=== PATIENT | male | born 1990 | race Hispanic/Latino ===

== ENCOUNTER 2020-02-23 10:10 | Emergency (ER) | payer SELFPAY ==
[2020-02-23] MEDS ORDERED: CYCLOBENZAPRINE 10 MG TAB ONE (11:53)
[2020-02-23] MEDS ORDERED: HYDROCODONE/APAP 7.5/325 MG TAB ONE (11:54)
--- NOTE | 2020-02-23 14:08 | ER ---
Nurse's Notes [facility] Name: Kyle Whatley Age: 29 yrs Sex: Male : 1990 Arrival Date: 02/23/2020 Time: 10:12 Bed 24 Private MD: Diagnosis: Pain in left leg Presentation: 02/22 10:40 Chief complaint: Patient states: started with low back pain X 3 weeks ago, now has pain iw moved into left leg down into his calf, also having numbness in the left leg. Coronavirus screen: At this time, the client does not indicate any symptoms associated with coronavirus-19. Ebola Screen: Patient negative for fever greater than or equal to 101.5 degrees Fahrenheit, and additional compatible Ebola Virus Disease symptoms Patient denies exposure to infectious person. Patient denies travel to an Ebola-affected area in the 21 days before illness onset. No symptoms or risks identified at this time. Initial Sepsis Screen: Does the patient meet any 2 criteria? No. Patient's initial sepsis screen is negative. Does the patient have a suspected source of infection? No. Patient's initial sepsis screen is negative. Risk Assessment: Do you want to hurt yourself or someone else? Patient reports no desire to harm self or others. Onset of symptoms was February 06, 2020. 10:40 Method Of Arrival: Ambulatory iw 10:40 Acuity: USHA 4 iw Historical: - Allergies: 10:42 No Known Allergies; iw - Home Meds: 10:42 None [Active]; iw - PMHx: 10:42 None; iw - PSHx: 10:42 None; iw - Immunization history:: Adult Immunizations not up to date. - Social history:: Smoking status: Patient denies any tobacco usage or history of. Screenin:26 Abuse screen: Denies threats or abuse. Denies injuries from another. Nutritional iw screening: No deficits noted. Tuberculosis screening: No symptoms or risk factors identified. Fall Risk None identified. Assessment: 11:26 General: Appears in no apparent distress. Behavior is calm, cooperative. Pain: iw Complains of pain in left leg. Neuro: Level of Consciousness is awake, alert, obeys commands, Oriented to person, place, time, situation, Moves all extremities. Cardiovascular: Patient's skin is warm and dry. Respiratory: Respiratory effort is even, unlabored, Respiratory pattern is regular. Derm: Skin is intact, is healthy with good turgor. Vital Signs: 10:42 BP 130 / 76; Pulse 81; Resp 16; Temp 97.3; Pulse Ox 98% on R/A; Weight 115.67 kg; iw Height 5 ft. 9 in. (175.26 cm); Pain 7/10; 10:42 Body Mass Index 37.66 (115.67 kg, 175.26 cm) iw ED Course: 10:12 Patient arrived in ED. as 10:30 Maribel Crook FNP-C is PHCP. kb 10:30 Ronnie Hudson MD is Attending Physician. kb 10:42 Triage completed. iw 11:24 Daisy Shipley, RN is Primary Nurse. iw 11:26 Patient has correct armband on for positive identification. iw 11:30 Arm band placed on. iw 12:08 Primary Nurse role handed off by Daisy Shipley, BRANDIE jd3 12:08 Shon Quintero, RN is Primary Nurse. jd3 12:31 US Extremity Venous Unilateral Ltd In Process Unspecified. EDMS 14:17 Primary Nurse role handed off by Shon Quintero RN iw 14:17 Daisy Shipley, RN is Primary Nurse. iw 14:38 No provider procedures requiring assistance completed. Patient did not have IV access iw during this emergency room visit. Administered Medications: 11:39 Drug: Flexeril 10 mg Route: PO; ca1 11:50 Follow up: Response: No adverse reaction iw 11:42 Drug: Pollock (7.5 mg-325 mg) 1 tabs {Note: rass 0.} Route: PO; ca1 11:50 Follow up: Response: No adverse reaction iw 14:30 Drug: TORadol 30 mg Route: IM; Site: right deltoid; iw 14:40 Follow up: Response: No adverse reaction iw Outcome: 14:07 Discharge ordered by . kb 14:38 Discharged to home ambulatory, with family. iw 14:38 Condition: good 14:38 Discharge instructions given to patient, family, Instructed on discharge instructions, follow up and referral plans. medication usage, Demonstrated understanding of instructions, follow-up care, medications, Prescriptions given X 2. 14:39 Patient left the ED. iw Signatures: Dispatcher [employer] EDMS Maribel Crook FNP-C FNP-Ckb Jayshree Lira, RN RN aj1 Tasha Gardner Irene, BRANDIE RN iw Shon Quintero RN RN jd3 Brittni Medina RN RN ca1 Corrections: (The following items were deleted from the chart) 11:42 10:42 BP 130 / 76; Pulse 81bpm; Resp 16bpm; Temp 97.3F; 115.67 kg; Height 5 ft. 9 in.; iw BMI: 37.6; Pain 7/10; iw 14:30 14:28 TORadol 30 mg IM in right deltoid aj1 iw
--- NOTE | 2020-02-23 14:08 | EDPHYS ---
Physician Documentation [facility] Name: Kyle Whatley Age: 29 yrs Sex: Male : 1990 Arrival Date: 02/23/2020 Time: 10:12 Bed 24 Private MD: ED Physician Ronnie Hudson HPI: 02/22 11:41 This 29 yrs old Male presents to ER via Ambulatory with complaints of Low Back kb Pain, Leg Pain. 11:41 The patient presents with pain, that is acute, tenderness. The complaints affect the kb left leg. Context: The problem was sustained at home, resulted from an unknown cause, the patient can fully bear weight, the patient is able to ambulate, Problem is a result from a previous injury: No. The patient has not experienced similar symptoms in the past. 11:42 Onset: The symptoms/episode began/occurred 3 week(s) ago. Modifying factors: The kb symptoms are alleviated by nothing. the symptoms are aggravated by weight bearing, straightening leg. Associated signs and symptoms: Pertinent positives: calf tenderness, Pertinent negatives fever, nausea, numbness, rash, swelling, tingling, vomiting, warmth, weakness. Treatment prior to arrival includes: no previous treatment. Severity of symptoms: At their worst the symptoms were moderate, in the emergency department the symptoms are unchanged. The patient has not recently seen a physician. Pt reports left leg pain that has been going on for 3 weeks. States the pain started in low back, but that has resolved. Now pain is from thigh to foot. Reports paresthesias at times. Historical: - Allergies: 10:42 No Known Allergies; iw - Home Meds: 10:42 None [Active]; iw - PMHx: 10:42 None; iw - PSHx: 10:42 None; iw - Immunization history:: Adult Immunizations not up to date. - Social history:: Smoking status: Patient denies any tobacco usage or history of. ROS: 11:40 Constitutional: Negative for fever, chills, and weight loss, Cardiovascular: Negative kb for chest pain, palpitations, and edema, Respiratory: Negative for shortness of breath, cough, wheezing, and pleuritic chest pain, Abdomen/GI: Negative for abdominal pain, nausea, vomiting, diarrhea, and constipation, Skin: Negative for injury, rash, and discoloration, Neuro: Negative for headache, weakness, numbness, tingling, and seizure. 11:40 MS/extremity: Positive for pain, tenderness, of the left leg. Exam: 11:40 Constitutional: This is a well developed, well nourished patient who is awake, alert, kb and in no acute distress. Head/Face: Normocephalic, atraumatic. Chest/axilla: Normal chest wall appearance and motion. Nontender with no deformity. No lesions are appreciated. Cardiovascular: Regular rate and rhythm with a normal S1 and S2. No gallops, murmurs, or rubs. Normal PMI, no JVD. No pulse deficits. Respiratory: Lungs have equal breath sounds bilaterally, clear to auscultation and percussion. No rales, rhonchi or wheezes noted. No increased work of breathing, no retractions or nasal flaring. Abdomen/GI: Soft, non-tender, with normal bowel sounds. No distension or tympany. No guarding or rebound. No evidence of tenderness throughout. Skin: Warm, dry with normal turgor. Normal color with no rashes, no lesions, and no evidence of cellulitis. Neuro: Awake and alert, GCS 15, oriented to person, place, time, and situation. Cranial nerves II-XII grossly intact. Motor strength 5/5 in all extremities. Sensory grossly intact. Cerebellar exam normal. Normal gait. 11:40 Musculoskeletal/extremity: Extremities: grossly normal except: noted in the left leg: pain, tenderness, ROM: limited active range of motion due to pain, Circulation is intact in all extremities. Sensation intact. Weight bearing: able to fully bear weight. Vital Signs: 10:42 BP 130 / 76; Pulse 81; Resp 16; Temp 97.3; Pulse Ox 98% on R/A; Weight 115.67 kg; iw Height 5 ft. 9 in. (175.26 cm); Pain 7/10; 10:42 Body Mass Index 37.66 (115.67 kg, 175.26 cm) iw MDM: 11:24 Patient medically screened. kb 11:40 Data reviewed: vital signs, nurses notes. Data interpreted: Pulse oximetry: on room air kb is 100 %. Interpretation: normal. 13:06 Counseling: I had a detailed discussion with the patient and/or guardian regarding: the kb historical points, exam findings, and any diagnostic results supporting the discharge/admit diagnosis, radiology results, the need for outpatient follow up, a family practitioner, to return to the emergency department if symptoms worsen or persist or if there are any questions or concerns that arise at home. 02/22 11:35 Order name: US Extremity Venous Unilateral Ltd; Complete Time: 14:17 kb Administered Medications: 11:39 Drug: Flexeril 10 mg Route: PO; ca1 11:50 Follow up: Response: No adverse reaction iw 11:42 Drug: Cornell (7.5 mg-325 mg) 1 tabs {Note: rass 0.} Route: PO; ca1 11:50 Follow up: Response: No adverse reaction iw 14:30 Drug: TORadol 30 mg Route: IM; Site: right deltoid; iw 14:40 Follow up: Response: No adverse reaction iw Disposition: 18:07 Co-signature as Attending Physician, Ronnie Hudson MD I agree with the assessment and kdr plan of care. Disposition: 02/23/20 14:07 Discharged to Home. Impression: Pain in left leg. - Condition is Stable. - Discharge Instructions: Musculoskeletal Pain. - Prescriptions for Cyclobenzaprine 10 mg Oral Tablet - take 1 tablet by ORAL route every 8 hours As needed; 21 tablet. Diclofenac Sodium 75 mg Oral Tablet, Delayed Release (E.C.) - take 1 tablet by ORAL route 2 times per day As needed; 30 tablet. - Medication Reconciliation Form, Thank You Letter, Antibiotic Education, Prescription Opioid Use form. - Follow up: Emergency Department; When: As needed; Reason: Worsening of condition. Follow up: Private Physician; When: 2 - 3 days; Reason: Recheck today's complaints, Continuance of care, Re-evaluation by your physician. Signatures: Dispatcher [employer] EDPR Maribel Crook, ADELA-C ADELA-Jayshree Box RN RN aj1 Ronnie Hudson MD MD kdr Williams, Irene, RN RN iw Brittni Medina RN RN ca1 Corrections: (The following items were deleted from the chart) 14:39 14:07 02/23/2020 14:07 Discharged to Home. Impression: Pain in left leg. Condition is iw Stable. Discharge Instructions: Musculoskeletal Pain. Prescriptions for Cyclobenzaprine 10 mg Oral Tablet - take 1 tablet by ORAL route every 8 hours As needed; 21 tablet, Diclofenac Sodium 75 mg Oral Tablet, Delayed Release (E.C.) - take 1 tablet by ORAL route 2 times per day As needed; 30 tablet. and Forms are Medication Reconciliation Form, Thank You Letter, Antibiotic Education, Prescription Opioid Use. Follow up: Emergency Department; When: As needed; Reason: Worsening of condition. Follow up: Private Physician; When: 2 - 3 days; Reason: Recheck today's complaints, Continuance of care, Re-evaluation by your physician. kb
--- NOTE | 2020-02-23 14:13 | RAD REPORT ---
EXAM DESCRIPTION: US - Extremity Venous Uni Ltd - 02/23/2020 1:17 pm CLINICAL HISTORY: PAIN COMPARISON: None. TECHNIQUE: Real-time sonographic evaluation of the left lower extremity deep venous system was perfo rmed. FINDINGS: Normal compressibility, flow augmentation, phasic flow and spontaneous flow are identified in the left lower extremity common femoral, superficial femoral, popliteal and posterior tibial vein s. No intraluminal filling defects seen. IMPRESSION: No DVT in the left lower extremity.
[2020-02-23] MEDS ORDERED: KETOROLAC 30 MG/ML INJ ONE (14:38)
[2020-02-23 19:37] VITALS: BP 130/76; TEMP 97.3; O2SAT 98
== END 2020-02-23 14:39 | disposition home or self-care (01) ==
LOC: ER 10:10
DX: M79.605 Pain in left leg (principal)
CPT/HCPCS: 93971; 96372; 99283